=== PATIENT | male | born 1970 | race Caucasian/White ===

== ENCOUNTER → 2016-11-09 | Outpatient (CLI) | payer BC | END | disposition home or self-care (01) | LOC: C.LABSPEC 16:26 | PROVIDERS: ATTEND Physician Assistant | DX: L02.415 Cutaneous abscess of right lower limb (principal) ==

== ENCOUNTER → 2017-02-21 | Outpatient (CLI) | payer BC ==
--- NOTE | 2017-02-21 16:45 | DIAGNOSTIC IMAGING REPORT ---
R KNEE 4 OR MORE HISTORY: 46 years-old Male RIGHT KNEE PAIN acute right-sided knee pain without known injury COMPARISON: Right knee radiographs 11/09/2016 TECHNIQUE: AP standing, sunrise, and lateral views of the bilateral knees FINDINGS: RIGHT: There is mild tricompartmental osteoarthritis of the right knee with enthesopathy along the superior pole at the quadriceps insertion site. Small knee joint effusion. Mild soft tissue swelling. LEFT: Mild medial and patellofemoral degenerative changes with small knee joint effusion. No acute fracture or dislocation. No intra-articular loose body. Enthesopathy along the superior pole of the quadriceps insertion site. No opaque foreign body. IMPRESSION: 1. No acute fracture or dislocation of the right or left knee. 2. Mild degenerative changes bilaterally as above. 3. Small joint effusions with mild right knee soft tissue swelling. The above report was generated using voice recognition software. It may contain grammatical, syntax or spelling errors. Electronically signed by: Mark Groves M.D. 02/21/2017 4:43 PM Dictated Date/Time: 02/21/2017 4:39 PM
== END | disposition home or self-care (01) ==
LOC: C.RDSM 15:52
PROVIDERS: ATTEND Physician Assistant
DX: M25.561 Pain in right knee (principal); M25.461 Effusion, right knee